=== PATIENT | female | born 1995 | race Caucasian/White ===

== ENCOUNTER 2022-11-27 22:49 | Emergency (ER) | payer SELFPAY ==
[~2022-11-27] VITALS: Ht 157.5 cm; Wt 63.5 kg
[2022-11-27 22:51] VITALS: BP 152/57; PULSE 100; RESP 18; TEMP 98; O2SAT 96
--- NOTE | 2022-11-27 22:58 | NUR ---
PT [facility]. TAKEN TO BED 7
--- NOTE | 2022-11-27 23:12 | NUR ---
Dr. Barrera examining patient.
[2022-11-27] MEDS ORDERED: LORazepam 2 MG/ML VIAL IVP ONE (23:15)
[2022-11-27] MEDS ORDERED: NACL 0.9% 1,000 ML IV ONE (23:20)
[2022-11-27 23:41] LABS: BASOPHILS # (AUTO) 0.1 K/uL (0.00-0.22); BASOPHILS % (AUTO) 0.9 % (0.0-2.0); EOSINOPHILS # (AUTO) 0.1 K/uL (0-0.4); EOSINOPHILS % (AUTO) 0.5 % (0.0-4.0); HEMOGLOBIN 10.7 g/dL (12.0-16.0); LYMPHOCYTES # (AUTO) 2.3 K/uL (2.5-16.5); LYMPHOCYTES % (AUTO) 22.5 % (20.5-51.1); MEAN CORPUSCULAR HEMOGLOBIN 29 pg (27-31); MEAN CORPUSCULAR HGB CONC 33 g/dL (33-37); MEAN CORPUSCULAR VOLUME 86.5 fL (80-94); MONOCYTES # (AUTO) 0.8 K/uL (0.8-1.0); MONOCYTES % (AUTO) 7.7 % (1.7-9.3); NEUTROPHILS # (AUTO) 7.1 K/uL (1.8-7.7); NEUTROPHILS % (AUTO) 68.4 % (42.2-75.2); PLATELET COUNT (AUTO) 292 K/uL (140-450); RED CELL DISTRIBUTION WIDTH 15.5 % (11.6-13.7); WHITE BLOOD COUNT (AUTO) 10.4 K/uL (4.8-10.8)
[2022-11-27 23:50] LABS: APPEARANCE,URINE CLEAR (CLEAR); BILIRUBIN,URINE 2+ (NEGATIVE); BLOOD, URINE NEGATIVE (NEGATIVE); COLOR,URINE YELLOW (YELLOW); LEUKOCYTE ESTERASE ,URINE NEGATIVE (NEGATIVE); NITRITE, URINE NEGATIVE (NEGATIVE); PH,URINE 5.5 (5.0-9.0); UGLUCOSE NEGATIVE (NEGATIVE)
[2022-11-27 23:53] LABS: ALBUMIN 3.4 g/dL (3.4-5.0); ANION GAP 11.6 (8-16); ASPARTATE AMINOTRANSFERASE 50 U/L (15-37); CARBON DIOXIDE 26.8 mmol/L (21-32); CHLORIDE 107 mmol/L (98-107); CREATININE 0.9 mg/dL (0.6-1.3); GFR ARICAN-AMERICAN 95 mL/min (>90); GLUCOSE 102 mg/dL (74-106); POTASSIUM 3.4 mmol/L (3.5-5.1); SODIUM SERUM 142 mmol/L (136-145); TOTAL BILIRUBIN 0.4 mg/dL (0.0-1.0); UREA NITROGEN, BLOOD 20 mg/dL (7-18)
[2022-11-27 23:54] LABS: ACETAMINOPHEN < 0.5 ug/ml (10-30); SALICYLATE < 2.8 mg/dL (2.8-20.0)
[2022-11-27 23:59] LABS: BARBITURATE, URINE NEGATIVE ng/ml (NEG <=200); BENZODIAZEPINE, URINE POSITIVE ng/mL (NEG <=200); CANNABINOID, URINE POSITIVE ng/mL (NEG <=50); COCAINE, URINE POSITIVE ng/mL (NEG <=300); OPIATE, URINE POSITIVE ng/mL (NEG <=2000); PHENCYCLIDINE SCREEN,URINE NEGATIVE ng/mL (NEG <=25)
[2022-11-28] MEDS ORDERED: HALOPERIDOL IM 5 MG/ML VIAL IM ONE (00:10)
[2022-11-28] MEDS ORDERED: NACL 0.9% 1,000 ML IV ONE (00:10)
[2022-11-28 00:17] LABS: CKMB RELATIVE INDEX 1.7 (0.0-2.5); CREATINE KINASE MB 12.7 ng/mL (0-3.6)
[2022-11-28] MEDS ORDERED: QUEtiapine FUMARATE 25 MG TAB PO ONE (02:50)
[2022-11-28] MEDS ORDERED: LORazepam 2 MG/ML VIAL IVP ONE (02:50)
--- NOTE | 2022-11-28 02:56 | NUR ---
PT TAKEN TO CT
--- NOTE | 2022-11-28 09:28 | NUR ---
Psych eval performed br Dr Byrne and pt is to be placed on hold for Failure to thrive. Rooms stripped of wired and tubing. 20G IV removed without complication, indwelling catheter was DC'd per Dr Villasenor. Pt remains calm and was given a sandwhich
--- NOTE | 2022-11-28 09:40 | NUR ---
FROM [facility] STATES UNABLE TO WRITE A 5150 HOLD D/T POLICY.
--- NOTE | 2022-11-28 09:58 | NUR ---
SPOKE TO [facility] FROM [facility], WHO STATES THEY CANNOT WRITE A 5150 HOLD IN A HOSPITAL SETTINGS, [facility] CAN ONLY RECOMMEND A HOLD. MEAT CARRIER SHANNON AND ER DIRECTOR UNA MADE AWARE.
--- NOTE | 2022-11-28 10:16 | NUR ---
[facility] CALLED BACK TO SAY THEY WILL COME TO ER AND WRITE THE HOLD, D/T NOT HAVING POLICY IN WRITING. [employer]ODUCTION MACHINE OPERATOR UPDATED
--- NOTE | 2022-11-28 12:05 | NUR ---
[facility] AT BEDSIDE.
--- NOTE | 2022-11-28 12:24 | NUR ---
[facility] DOES NOT FEEL PT MEETS [facility] TO BE ON 5150 HOLD.
--- NOTE | 2022-11-28 15:32 | NUR ---
called [facility] to set up telepsych
--- NOTE | 2022-11-28 16:03 | NUR ---
DR SEPULVEDA ON TELEPSYCH WITH PT
--- NOTE | 2022-11-28 16:30 | NUR ---
CLINICALS SENT TO [facility]
[2022-11-28] MEDS ORDERED: OLANZapine 5 MG ODT PO SCH (21:00)
--- NOTE | 2022-11-28 21:00 | NUR ---
Meal provided; tolerated well.
--- NOTE | 2022-11-28 22:37 | NUR ---
Pt ambulatory to restroom; tolerated well.
--- NOTE | 2022-11-28 23:54 | NUR ---
pt asked to if she can take a shower, pt taken to mst and given clean srubs. pt asked for a warm tea, all needs provided.
--- NOTE | 2022-11-29 04:30 | NUR ---
Pt sleeping comfortably in bed; easy to arouse. No signs of distress. No signs of SI.
[2022-11-29 06:49] VITALS: TEMP 98.2
--- NOTE | 2022-11-29 08:44 | NUR ---
DR BLUM FROM [facility] AT BEDSIDE, DC PT WITH [facility].
[2022-11-29 09:27] VITALS: BP 122/70; PULSE 74; RESP 17; O2SAT 98
--- NOTE | 2022-11-29 09:27 | NUR ---
Patient discharged with v/s stable. Written and verbal after care instructions given and explained. Patient verbalized understanding. Ambulatory with steady gait. All questions addressed prior to discharge. Advised to follow up with PMD. HOMELESS RESCOURCES GIVEN TO PT.
== END 2022-11-29 09:27 | disposition home or self-care (01) ==
LOC: MED 22:49
DX: R41.82 Altered mental status, unspecified (principal); Z20.822 Contact with and (suspected) exposure to COVID-19; E86.0 Dehydration; E87.6 Hypokalemia; R74.8 Abnormal levels of other serum enzymes; D64.9 Anemia, unspecified; F19.10 Other psychoactive substance abuse, uncomplicated; Z79.899 Other long term (current) drug therapy
CPT/HCPCS: 36415; 70450; 80053; 80305; 81003; 81025; 82550; 82553; 85025; 87426; 87635; 96361; 96372; 96374; 96376; 99285; C9803; G0480; G0482; J1630; J2060; J7030